=== PATIENT | female | born 1955 | race Caucasian/White ===

== ENCOUNTER → 2020-01-16 06:09 | Outpatient (CLI) | payer MEDICARE, SELFPAY ==
--- NOTE | 2020-01-16 06:10 | NM_ITS ---
APPROVED REPORT Exam: Nuclear Stress Test Indication: fatigue..abn ecg Patient Location: Outpatient Stress Tech: Raya Fortenkson [place] Tech:Casandra PorterROCIO RT(R)(N) Ht: 5 ft 3 in Wt: 164 lbs Bra Size: 36c HR: 67 bpm BP: 121/68 mmHg BSA: 1.78 m2 BMI: 29.0 Procedure: Patient received a 0.4 mg of intravenous Lexiscan, resting heart rate 67 bpm, resting blood pressure 121/68 mmHg, with Lexiscan maximum heart rate achived was 76 bpm which is 85 % of the maximum predicted heart rate and blood pressure was 133/49 mmHg. With Lexiscan, patient denied any complaint of chest pain. Electrocardiogram Resting electrocardiogram showed sinus rhythm, with Lexiscan there is less than 1.[address] segment depression noted from the baseline EKG. The EKG portion of the Lexiscan Myoview is nondiagnostic. Cardiac Stress and Resting SPECT Images: Cardiac Stress and Resting SPECT images were obtained using technetium 99m Myoview 30.2 mCi stress and 10.71 mCi at rest. Gated SPECT for the analysis of segmental wall motion and calculation of the ejection fraction also done. Cardiac stress and resting SPECT images show large area of fixed defect involving the anterior anterior apical, anteroseptal and anterolateral wall without significant laury-infarct ischemia. Computer derived ejection fraction 29% with marked hypokinesis involving the anterior, anterior apical, apical and anteroseptal wall. Right ventricle is normal size and contractility. Conclusion: 1. The EKG portion of the Lexiscan Myoview is nondiagnostic. 2. Scintigraphic evidence of extensive myocardial scarring involving the anterior, anterior apical, anteroseptal and anterolateral wall without significant laury-infarct ischemia, computer derived ejection fraction of 29% with multiple segmental wall motion abnormalities described above, right ventricle is normal size and contractility. 3. Abnormal Lexiscan Myoview study. Electronically signed by : Geovani Hair, 01/16/2020 14:34:44
--- NOTE | 2020-01-16 06:10 | CA_ITS ---
APPROVED REPORT EXAM: Comprehensive 2D, Doppler, and color-flow Echocardiogram Real Estate Subagent: Sabi Cole RVT Ht: 5 ft 3 in Wt: 164lbs BSA: 1.78 BP: 133/79 mmHg Indications: CAD,HX IA,AICD,ABN EKG,CHF,DM,HTN,HLD,PHTN TDS Echo Enhancing Agent Indication: Endocardial border delineation Agent(s) / Amount(s) Used: Definity 2 cc 2D Dimensions LVOT 1.59 cm (M/F) 1.5-2.5 M-Mode Dimensions LVDd 5.06 cm (3.5-5.7) LVDs 4.17 cm (3.5-5.7) IVSd 0.72 cm (0.6-1.1) PWd 0.98 cm (0.6-1.1) EF (Teich) 36.40% FS 17.60% EDV (Teich) 121.60 mL ESV (Teich) 77.30 mL LV Diastology E/A Ratio 2.54 Aortic Valve AO VTI 41.29 (18-25 cm) Mitral Valve MV A Velocity 42.00 (40-130 cm/s) MV PHT 33.00 ms Left Ventricle Left atrium is moderately enlarged, left ventricle is mildly dilated, mild concentric left ventricular hypertrophy, severe reduced left ventricular systolic function, visually estimated ejection fraction approximately 25 to 30%, there is marked hypo-to akinesis involving mid to distal septum, anterior anterior apical, apical and anterolateral wall. There is no left ventricular thrombus seen, Definity contrast worked as to delineate the endocardial surfaces. Diastolic parameters are inconclusive. Right Ventricle Right atrium and right ventricle are normal size and contractility, there is an AICD lead seen in the right ventricle. Aortic Valve Aortic valve is thickened and calcified leaflet chordae display good mobility, there is no aortic stenosis or aortic insufficiency. Mitral Valve Mitral valve leaflets are minimally thickened, there is no mitral stenosis, there is mild mitral regurgitation. Tricuspid Valve Tricuspid valve is grossly normal, there is mild tricuspid regurgitation, tricuspid regurgitation jet velocity is inadequate for calculation of the right ventricular systolic pressure. Pulmonic Valve Pulmonic valve is poorly visualized. Great Vessels Aortic root is normal size. Pericardium No significant pericardial effusion noted. Conclusion 1. Moderately enlarged left atrium, dilated left ventricle, severely reduced left ventricular systolic function, visually estimated ejection fraction 25 to 30% with multiple segmental wall motion abnormality described above, there is no left ventricular thrombus seen, Definity contrast utilized to delineate the endocardial surfaces. 2. Mild mitral and tricuspid regurgitation. 3. No significant pericardial effusion noted. Electronically signed by : Geovani Hair, 01/16/2020 14:46:47
--- NOTE | 2020-01-16 06:10 | CA_ITS ---
APPROVED REPORT Exam: Pharmacologic Technologist: Gilda Maria, Ht: 5 ft 6 in Wt: 164 lbs BSA: 1.84 m2 HR: 67 bpm BP: 121/68 mmHg Rhythm: VENTRICULAR PACEMAKER Medical History Medical History: Diabetic ??? Noninsulin, Hyperlipidemia, HTN Medications: Asa,,,,, Metformin,,,,, Atorvastatin,,,,, Carvedilol,,,,, Lasix,,,,, SpirOLACTONE,,,,, Plavix,,,,, Cardiac Risk Factors: HTN, Hyperlipidemia, Diabetes (non-insulin), FHX of CAD Previous Cardiac Procedures: PACEMAKER, STENTS Stress Test Details Test: LEXISCAN HR Resting HR: 62 bpm Max Heart Rate (APMHR): 154 bpm Max HR Achieved: 86 bpm Target HR (85% APMHR): 130 bpm % of APMHR: 55 Recovery HR: 75 bpm BP Resting BP: 121.0/68.0 mmHg Max BP: 135.0/73.0 mmHg Recovery BP: 135.0/73.0 mmHg ECG Resting ECG: VENTRICULAR PACEMAKER Clinical Exercise duration: 05:02 min Highest Stage Achieved: Exercise capacity: 1.0 METs Stress ECG Conclusion DURING INFUSION OF LEXISCAN PATIENT HAD MALAISE,NAUSEA AND VOMITING. NO CHEST PAIN. NO ARRHYTHMIAS/ECTOPY. NO SIGNIFICANT ST-T CHANGES. NON-DIAGNOSTIC LEXISCAN STRESS. MYOVIEW IMAGES REPORTED SEPARATELY. Electronically signed by : Geovani Hair, 01/16/2020 14:30:15
--- NOTE | 2020-01-16 09:29 | HMH.ITSHM ---
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 [] spironolactone metformin furosemide clopidogrel carvedilol atorvastatin asa
== END ==
PROVIDERS: PCP Nurse Practitioner Family; Visit Provider Nurse Practitioner Family
DX: E11.9 Type 2 diabetes mellitus without complications (principal); E78.2 Mixed hyperlipidemia; I11.0 Hypertensive heart disease with heart failure; I25.10 Atherosclerotic heart disease of native coronary artery without angina pectoris; I27.20 Pulmonary hypertension, unspecified; Z95.810 Presence of automatic (implantable) cardiac defibrillator; I50.20 Unspecified systolic (congestive) heart failure; R94.31 Abnormal electrocardiogram [ECG] [EKG]
CPT/HCPCS: 78452; 93017; 93306; A9502; J2785; Q9957

== ENCOUNTER 2020-01-30 07:59 | Day surgery (SDC) | payer MEDICARE, SELFPAY ==
[2020-01-30] VITALS (11 sets, daily range): BP systolic 86–139; BP diastolic 52–78; PULSE 60–63; RESP 16–18; TEMP 36.4; O2SAT 94–100; BMI 29.7
--- NOTE | 2020-01-30 | IR_ITS ---
APPROVED REPORT Patient Location: Outpatient Pipe Manufacture Supervisor: ROCIO Davis RT (R) PROCEDURES Left heart catheterization Left ventriculogram Selective coronary angiogram INDICATION Known ischemic cardiomyopathy, High risk abnormal Myoview, Angina pectoris Informed consent was obtained prior to the procedure. COMPLICATIONS NONE Estimated Blood Loss: LESS THAN 10 ML TECHNIQUE One percent lidocaine used to anesthetize the right anterior aspect of the wrist. The right radial artery was accessed via the Seldinger technique. A 6 Bhutanese sheath was placed in the right radial artery. 2.5 mg of verapamil, 800 mcg of nitroglycerin, 1mg Lidocaine and 5000 U Heparin were given through the arterial sheath. The trap catheter and a JL 3 6 Bhutanese guide catheter were also used to perform left heart catheterization, left ventriculogram and selective coronary angiogram. At the end of the procedure the sheath was removed good hemostasis was achieved using Traclet band, patient was transferred to the postop holding area in stable condition. ANGIOGRAPHIC RESULTS The left main artery Has a smooth ostial 20% stenosis The left anterior descending artery Has a stent in the ostial segment which extends into the proximal segment which is widely patent free of in-stent restenosis with excellent proximal transitioning. Distal to the stent there is a 30% transitioning stenosis the remaining LAD is free of disease The circumflex artery Gives rise to a large ramus intermedius which has a stent in its ostial proximal segment which is widely patent with 30% [id number] in-stent restenosis. The circumflex artery gives rise to a solitary obtuse marginal artery running in the AV groove. The ostium of the circumflex artery has a smooth 30% [id number] stenosis The right coronary artery Is a dominant vessel and occluded distal to the RV marginal branch. The distal vessel fills via [id number] collaterals The MCCANN ventriculogram reveals Dilated ventricle ejection fraction 30% with anterior and apical hypokinesis The left ventricular end-diastolic pressure 15 mmHg IMPRESSION Essentially unchanged coronary artery disease from last heart cath at [facility] Patent LAD ramus intermedius and circumflex artery with large regional wall motion abnormality involving the anteroapical wall from previous myocardial infarction Chronically occluded right coronary artery with excellent [id number] collaterals Normal to mildly elevated LVEDP PLAN 1. Medical management Electronically signed by : Ar Kaur, 01/30/2020 11:07:21
[2020-01-30 08:42] LABS: Basophils # 0.1 K/mm3 (0-0.2); Basophils % 0.7 % (0.1-2.0); Eosinophils # 0.2 K/mm3 (0.0-0.4); Hematocrit 37.5 % (37.0-47.0); Lymphocytes # 2.2 K/mm3 (0.7-4.5); Mean Corpuscular HGB Conc 34.5 g/dL (31.8-35.4); Mean Corpuscular Hemoglobin 28.5 pg (27.0-31.2); Mean Corpuscular Volume 82.5 fl (81-99); Mean Platelet Volume 7.6 fl (7.4-10.4); Monocytes # 0.4 K/mm3 (0.1-1.0); Monocytes % 5.1 % (1.7-9.3); Neutrophils # 5.3 K/mm3 (1.8-7.8); Neutrophils % 65.3 % (37.0-80.0); Platelet Count 293 K/mm3 (142-424); Red Blood Count 4.55 M/mm3 (4.20-5.40); Red Cell Distribution Width 15.6 % (11.5-17.5); White Blood Count 8.2 K/mm3 (4.8-10.8)
[2020-01-30 08:46] LABS: Chloride 98 mmol/L (98-107); Potassium 4.5 mmoL/L (3.5-5.1); Sodium 140 mmol/L (136-145)
[2020-01-30 08:49] LABS: Anion Gap 21.5 mEq/L (5-15); Blood Urea Nitrogen 31 mg/dl (7-17); Carbon Dioxide 25 mmol/L (22.0-30.0); Creatinine Clearance Estimated 51 mL/min (50-200); Estimated Glomerular Filt Rate 41 ml/min (>60); GFR (African American) 50 ML/MIN (>60)
[2020-01-30 08:50] LABS: Calcium 9.8 mg/dl (8.4-10.2); Glucose 174 mg/dl (74-100)
== END 2020-01-30 14:04 | disposition home or self-care (01) ==
LOC: CATHLAB 08:01
PROVIDERS: PCP Nurse Practitioner Family; Visit Provider Internal Medicine
DX: I25.10 Atherosclerotic heart disease of native coronary artery without angina pectoris (principal); I25.5 Ischemic cardiomyopathy; I11.0 Hypertensive heart disease with heart failure; I50.22 Chronic systolic (congestive) heart failure; Z95.810 Presence of automatic (implantable) cardiac defibrillator; E11.9 Type 2 diabetes mellitus without complications; I27.20 Pulmonary hypertension, unspecified; Z79.84 Long term (current) use of oral hypoglycemic drugs; Z79.82 Long term (current) use of aspirin; Z79.01 Long term (current) use of anticoagulants; Z79.899 Other long term (current) drug therapy; I25.82 Chronic total occlusion of coronary artery
CPT/HCPCS: 80048; 85025; 93458; 99152; C1725; C1769; J1644

== ENCOUNTER → 2022-07-14 11:10 | Outpatient (CLI) | payer MEDICARE, SELFPAY ==
--- NOTE | 2022-07-14 11:11 | CA_ITS ---
APPROVED REPORT EXAM: Comprehensive 2D, Doppler, and color-flow Echocardiogram Field Agronomist: Teri Harkins RT(R) Ht: 5 ft 3 in Wt: 162lbs BSA: 1.77 BP: 145/76 mmHg Indications: HTN, hyperlipidemia, AICD, PHTN, CAD, CM Echo Enhancing Agent Indication: Endocardial border delineation Agent(s) / Amount(s) Used: Definity 2 cc 2D Dimensions Aortic Root 1.91 cm F: 2.7 - 3.3 LA Volume 42.40 mL LA Volume Index 23.95 mL/m2 (M/F) 16-34 M-Mode Dimensions RVDd 2.04 cm (0.9-2.6) LA Diam 3.69 cm (1.9-4.0) LVDd 6.30 cm (3.5-5.7) Ao Diam 2.51 cm (2.0-3.7) LVDs 5.47 cm (3.5-5.7) IVSd 0.57 cm (0.6-1.1) PWd 0.75 cm (0.6-1.1) EF (Teich) 27.60% FS 13.20% EDV (Teich) 201.20 mL ESV (Teich) 145.60 mL LV Diastology E Decel Time 150.00 (160-240 msec) E/A Ratio 1.4 MED E' 4.60 (< 7 cm/sec) E'/MED E' Ratio 25.61 (>14) LAT E' 7.60 (<10 cm/sec) E/LAT E' Ratio 15.50 (>14) Mitral Valve MV E Max Tyler. 118.00 (40-130 cm/s) MV A Velocity 84.00 (40-130 cm/s) E/A Ratio 1.40 MV Decel. Time 150.00 (160-240 ms) MV PHT 44.00 ms Left Ventricle Technically difficult study because of the patient factors and poor acoustic windows. Definity contrast was utilized to delineate the endocardial surfaces. Left atrium is mildly enlarged, left ventricle is mildly dilated, severe reduced left ventricular systolic function, estimated ejection fraction 25%, there is marked hypokinesis involving interventricular septum, anterior, anterior apical and apical wall, there is no left ventricular thrombus seen, Doppler evidence of low cardiac output state seen. Right Ventricle Right atrium and right ventricular normal size and contractility, AICD lead seen in right ventricle. Aortic Valve Aortic valve is thickened and calcified without aortic stenosis or aortic insufficiency. Mitral Valve Mitral valve leaflets are minimally thickened, there is mild mitral regurgitation. Tricuspid Valve Tricuspid grossly normal, there is mild tricuspid regurgitation, tricuspid regurgitation jet velocity is inadequate for calculation of the right ventricular systolic pressure. Pulmonic Valve Pulmonic valve is poorly visualized. Great Vessels Aortic root is normal size. Inferior vena cava is poorly visualized. Pericardium No significant pericardial effusion noted. Conclusion 1. Technically difficult study because of the patient factors and poor acoustic windows, Definity contrast was utilized to delineate the endocardial surfaces, dilated left ventricle with severe left ventricular systolic dysfunction, with multiple segmental wall motion abnormality described above, estimated ejection fraction 25%. Diastolic parameters are inconclusive. Doppler evidence of low cardiac output state. There is no left ventricular thrombus seen. 2. Mild mitral and tricuspid regurgitation. 3. No significant pericardial effusion. 4. Inferior vena cava is poorly visualized. Electronically signed by : Geovani Hair MD 07/15/2022 15:42:37
== END ==
PROVIDERS: PCP Internal Medicine; Visit Provider Nurse Practitioner Family
DX: E11.9 Type 2 diabetes mellitus without complications (principal); E78.5 Hyperlipidemia, unspecified; I11.0 Hypertensive heart disease with heart failure; I25.10 Atherosclerotic heart disease of native coronary artery without angina pectoris; I27.20 Pulmonary hypertension, unspecified; I50.20 Unspecified systolic (congestive) heart failure; R94.31 Abnormal electrocardiogram [ECG] [EKG]; Z95.810 Presence of automatic (implantable) cardiac defibrillator
CPT/HCPCS: 93306; Q9957

== ENCOUNTER → 2022-08-22 15:00 | Outpatient (CLI) | payer MEDICARE, SELFPAY ==
[2022-08-22 15:55] LABS: Anion Gap 13.7 mEq/L (5-15); Blood Urea Nitrogen 56 mg/dl (7-17); Calcium 8.8 mg/dl (8.4-10.2); Carbon Dioxide 25 mmol/L (22.0-30.0); Chloride 102 mmol/L (98-107); Estimated Glomerular Filt Rate 18 ml/min (>60); GFR (African American) 22 ML/MIN (>60); Glucose 388 mg/dl (74-100); Potassium 4.7 mmoL/L (3.5-5.1); Sodium 136 mmol/L (136-145)
== END ==
PROVIDERS: PCP Nurse Practitioner Family; Visit Provider Nurse Practitioner
DX: N18.2 Chronic kidney disease, stage 2 (mild) (principal)
CPT/HCPCS: 36415; 80048